=== PATIENT | male | born 1955 | race Caucasian/White ===

== ENCOUNTER 2023-07-24 19:26 | Emergency (ER) | payer MEDICARE, MEDICAID ==
[~2023-07-24] VITALS: Ht 177.8 cm; Wt 50.8 kg
[2023-07-24 20:28] LABS: BASOPHILS # (AUTO) 0.1 X10'3 (0-0.2); BASOPHILS % (AUTO) 0.7 % (0-1); EOSINOPHILS # (AUTO) 0.2 X10'3 (0-0.9); EOSINOPHILS % (AUTO) 1.8 % (0-6); HEMATOCRIT 42.8 % (42.0-52.0); HEMOGLOBIN 14.6 g/dl (14.0-17.9); LYMPHOCYTES # (AUTO) 1.3 X10'3 (1.1-4.8); LYMPHOCYTES % (AUTO) 15.1 % (21-51); MEAN CORPUSCULAR HEMOGLOBIN 32.4 PG (27.0-31.0); MEAN CORPUSCULAR HGB CONC 34.1 g/dL (33.0-36.5); MEAN PLATELET VOLUME 9.8 FL (7.4-10.4); MONOCYTES # (AUTO) 0.8 X10'3 (0-0.9); MONOCYTES % (AUTO) 9.7 % (2-12); NEUTROPHILS # (AUTO) 6.2 X10'3 (1.8-7.7); NEUTROPHILS % (AUTO) 72.7 % (42-75); PLATELET COUNT 157 X10'3 (140-440); RED BLOOD COUNT 4.51 X10'6 (4.70-6.10); RED CELL DISTRIBUTION WIDTH 12.5 % (11.5-14.5); WHITE BLOOD COUNT 8.5 X10'3 (4.5-11.0)
[2023-07-24 20:38] LABS: ALANINE AMINOTRANSFERASE 44 U/L (12-78); ALBUMIN 3.9 G/DL (3.4-5.0); ALKALINE PHOSPHATASE 84 IU/L (46-116); ANION GAP 7 (8-16); ASPARTATE AMINO TRANSFERASE 33 U/L (10-37); BILIRUBIN,TOTAL 0.5 MG/DL (0.1-1.0); BLOOD UREA NITROGEN 20 MG/DL (7-18); CALCIUM 9.2 MG/DL (8.5-10.1); CHLORIDE 100 MMOL/L (99-107); CREATININE 0.87 MG/DL (0.60-1.10); GLUCOSE 191 MG/DL (70-104); POTASSIUM 3.3 MMOL/L (3.5-5.1); SODIUM 134 MMOL/L (135-145); TOTAL CARBON DIOXIDE 27.4 MMOL/L (24-32); TOTAL PROTEIN 7.7 G/DL (6.4-8.2); eCRCL 61 ML/MIN; eGFR 88 ML/MIN
[2023-07-25 00:07] LABS: C-REACTIVE PROTEIN 0.31 MG/DL (0.0-0.5)
[2023-07-25 02:27] VITALS: BP 168/104; PULSE 94; RESP 16; TEMP 98; O2SAT 100
[2023-07-25] MEDS ORDERED: LIDOcaine 1% 30ml preserv. free vial IJ ONE (02:35)
--- NOTE | 2023-07-25 03:04 | NUR ---
LIDOCAINE, 10ML SYRINGE, AND NEEDLES, SET UP FOR ERMD
[2023-07-25] MEDS ORDERED: colchicine 0.6mg tablet PO ONE (03:55)
[2023-07-25] MEDS ORDERED: prednisone 10mg tablet PO STA (04:01)
[2023-07-25] MEDS ORDERED: predniSONE 20 mg tablet PO STA (04:11)
[2023-07-25] MEDS ORDERED: PRED20TA PO (04:32)
[2023-07-25] MEDS ORDERED: IBUP-1984 PO (04:32)
[2023-07-25] MEDS ORDERED: colchicine 0.6mg tablet PO SCH (05:00)
== END 2023-07-25 05:11 | disposition home or self-care (01) ==
LOC: ER 19:27
DX: M13.831 Other specified arthritis, right wrist (principal); F15.90 Other stimulant use, unspecified, uncomplicated; Z59.00 Homelessness unspecified; Z56.0 Unemployment, unspecified
CPT/HCPCS: 20605; 36415; 73130; 80053; 83605; 84145; 85025; 85651; 86140; 87040; 99284; J3490; J7512